=== PATIENT | female | born 1980 | race Caucasian/White ===

== ENCOUNTER 2017-12-15 08:12 | Outpatient (CLI) | payer OTHER ==
[~2017-12-15] VITALS: Ht 154.9 cm; Wt 72.3 kg
[~2017-12-15 08:12] MED LIST: ACET-1600 PO; ACET-458 PO; ACET325T26 PO; DOCO100C PO; FERR325T18 PO; FEXO180T72 PO; IBUP-1222 PO; NORE1TAB11 PO; OXYC-302 PO; PREN1TAB28 PO; PREN1TAB52 PO; VITAMIN B PO; [UNRECOGNIZED DRUG - OTHER]
[2017-12-15] MEDS ORDERED: ACET-1757 PO (09:20)
[2017-12-15] MEDS ORDERED: ACET-76 PO (09:20)
[2017-12-15 09:45] VITALS: BP 108/58
== END 2017-12-15 09:41 | disposition home or self-care (01) ==
LOC: LDOP 08:12
PROVIDERS: ATTEND Obstetrics & Gynecology Gynecology
DX: O36.8130 Decreased fetal movements, third trimester, not applicable or unspecified (principal); Z3A.36 36 weeks gestation of pregnancy
CPT/HCPCS: 59025; 99211; G0463

== ENCOUNTER 2017-12-29 19:01 | Outpatient (CLI) | payer OTHER ==
[~2017-12-29] VITALS: Ht 154.9 cm; Wt 73.2 kg
[~2017-12-29 19:01] MED LIST changes: +ACET-1757 PO; +ACET-76 PO
== END 2017-12-29 20:17 | disposition home or self-care (01) ==
LOC: LDOP 19:01
PROVIDERS: ATTEND Obstetrics & Gynecology Gynecology
DX: O26.893 Other specified pregnancy related conditions, third trimester (principal); R10.9 Unspecified abdominal pain; Z3A.00 Weeks of gestation of pregnancy not specified
CPT/HCPCS: 59025; 99211; G0463

== ENCOUNTER 2018-01-06 09:54 | Inpatient (IN) | payer OTHER ==
[~2018-01-06] VITALS: Ht 162.6 cm; Wt 73.1 kg
[2018-01-06] MEDS ORDERED: LACTATED RINGERS 1,000 ML IV SCH (10:12)
[2018-01-06] MEDS ORDERED: OXYTOCIN 30U/ 0.9% NaCL 500ML 500 ML IV SCH (10:12)
[2018-01-06 10:30] LABS: BASOPHILS # (AUTO) 0.01 x10^3/uL (0-0.1); BASOPHILS % (AUTO) 0 % (0-1); EOSINOPHILS # (AUTO) 0.04 x10^3/uL (0-0.4); EOSINOPHILS % (AUTO) 0 % (1-7); LYMPHOCYTES # (AUTO) 1.62 x10^3/uL (1-3.4); LYMPHOCYTES % (AUTO) 17 % (22-44); MD NO; MEAN CORPUSCULAR HEMOGLOBIN 31.3 pg (27.0-34.8); MEAN CORPUSCULAR HGB CONC 34.2 g/dL (32.4-35.8); MEAN CORPUSCULAR VOLUME 91.7 fL (80-100); MEAN PLATELET VOLUME 8.4 fL (7.4-10.4); MONOCYTES # (AUTO) 0.39 x10^3/uL (0.2-0.8); MONOCYTES % (AUTO) 4 % (2-9); NEUTROPHILS % (AUTO) 79 % (42-75); PLATELET COUNT 215 x10^3/uL (130-400); RED BLOOD COUNT 4.21 x10^6/uL (3.82-5.3); RED CELL DISTRIBUTION WIDTH 13.4 % (9.6-15.2)
[2018-01-06] MEDS ORDERED: LACTATED RINGERS 1,000 ML IVBOLUS ONE (10:30)
[2018-01-06] MEDS ORDERED: SODIUM CITRATE/CITRIC ACID 30 ML UDC PO ONE (10:30)
[2018-01-06] MEDS ORDERED: METOCLOPRAMIDE 5 MG/ML, 2ML IV ONE (10:30)
[2018-01-06 10:33] VITALS: BP 119/68
[2018-01-06] MEDS ORDERED: OXYTOCIN 30U/ 0.9% NaCL 500ML 500 ML ONE (10:57)
[2018-01-06] MEDS ORDERED: NEWBORN KIT ONE (10:57)
[2018-01-06] MEDS ORDERED: SODIUM CITRATE/CITRIC ACID 30 ML UDC ONE (10:57)
[2018-01-06] MEDS ORDERED: METOCLOPRAMIDE 5 MG/ML, 2ML ONE (10:57)
[2018-01-06] MEDS ORDERED: EPHEDRINE 50 MG/ML, 1ML ONE (11:19)
[2018-01-06] MEDS ORDERED: CEFAZOLIN 1,000 MG ONE (11:19)
[2018-01-06] MEDS ORDERED: KETOROLAC 30 MG/1 ML ONE ×2 (11:19→15:18)
[2018-01-06] MEDS ORDERED: OXYTOCIN 10 UNITS/ML, 1ML ONE (11:19)
[2018-01-06] MEDS ORDERED: ONDANSETRON 2MG/ML, 2ML ONE (11:19)
[2018-01-06] MEDS ORDERED: PHENYLEPHRINE 10 MG/ML ONE (11:19)
[2018-01-06] MEDS ORDERED: DEXAMETHASONE 4 MG/ML, 1ML ONE (11:19)
[2018-01-06] MEDS ORDERED: FENTANYL PF 100 MCG/2ML ONE (11:20)
[2018-01-06] MEDS ORDERED: MEPERIDINE/PF 25MG/0.5ML IVPush PRN (11:30)
[2018-01-06] MEDS ORDERED: OXYcodone 5 MG/5 ML ORAL.SOL UDC PO PRN (11:30)
[2018-01-06] MEDS ORDERED: LABETALOL 5MG/ML, 20ML IV PRN (11:30)
[2018-01-06] MEDS ORDERED: EPHEDRINE 50 MG/ML, 1ML IVPush PRN (11:30)
[2018-01-06] MEDS ORDERED: HYDROcodone/APAP 7.5-325MG/15ML UDC PO PRN (11:30)
[2018-01-06] MEDS ORDERED: ALBUTEROL SULFATE 2.5 MG/3 ML NPPB PRN (11:30)
[2018-01-06] MEDS ORDERED: ONDANSETRON 2MG/ML, 2ML IVPush PRN (11:30)
[2018-01-06] MEDS ORDERED: hydrALAzine 20 MG/ML, 1ML IV PRN (11:30)
[2018-01-06] MEDS ORDERED: PROMETHAZINE 25 MG/ML, 1ML IV PRN (11:30)
[2018-01-06] MEDS ORDERED: FENTANYL PF 100 MCG/2ML IV PRN (11:30)
[2018-01-06] MEDS ORDERED: MIDAZOLAM 1 MG/ML, 2ML IV PRN (11:30)
[2018-01-06] MEDS ORDERED: HYDROmorphone 1 MG/ML, 1ML IV PRN (11:30)
[2018-01-06] MEDS: LACTATED RINGERS 1,000 ML IV SCH ×4 (13:41→23:41)
[2018-01-06] MEDS: OXYTOCIN 30U/ 0.9% NaCL 500ML 500 ML IV SCH ×2 (13:41→23:41)
[2018-01-06] MEDS ORDERED: CALCIUM CARBONATE 500 MG TAB.CHEW PO PRN (14:00)
[2018-01-06] MEDS ORDERED: DIPH,PERTUSS(ACELL),TET VAC/PF NC IM-VACC PRN (14:00)
[2018-01-06] MEDS ORDERED: ONDANSETRON 2MG/ML, 2ML IV PRN (14:00)
[2018-01-06] MEDS ORDERED: RHOGAM FROM BLOOD BANK 1 NOTE EA IM/IV ONE (14:00)
[2018-01-06] MEDS ORDERED: SIMETHICONE 80 MG CHEW TAB PO PRN (14:00)
[2018-01-06] MEDS ORDERED: morphine SULFATE 10 MG/ML, 1ML IVPush PRN (14:00)
[2018-01-06] MEDS ORDERED: MISOPROSTOL 200 MCG TABLET PR PRN (14:00)
[2018-01-06] MEDS ORDERED: OXYcodone/APAP 5/325MG TABLET PO PRN (14:00)
[2018-01-06] MEDS ORDERED: MEASLES,MUMPS&RUBELLA VACC/PF 0.5 ML SQ-VACC PRN (14:00)
[2018-01-06] MEDS ORDERED: HYDROcodone/APAP 7.5-325MG/15ML UDC ONE (15:18)
[2018-01-06] MEDS: KETOROLAC 30 MG/1 ML IV PRN ×2 (15:19→21:23)
[2018-01-06 15:30] VITALS: BP 101/58
[2018-01-06] MEDS: DOCUSATE 100 MG CAPSULE PO PRN (19:12)
[2018-01-06] MEDS: OXYcodone IR 5MG TABLET PO PRN ×2 (19:13→23:54)
[2018-01-06 19:15] VITALS: BP 110/76
[2018-01-06 21:17] LABS: BASOPHILS # (AUTO) 0.01 x10^3/uL (0-0.1); BASOPHILS % (AUTO) 0 % (0-1); EOSINOPHILS % (AUTO) 0 % (1-7); LYMPHOCYTES # (AUTO) 0.72 x10^3/uL (1-3.4); LYMPHOCYTES % (AUTO) 5 % (22-44); MD NO; MEAN CORPUSCULAR HEMOGLOBIN 30.6 pg (27.0-34.8); MEAN CORPUSCULAR HGB CONC 33.7 g/dL (32.4-35.8); MEAN CORPUSCULAR VOLUME 90.8 fL (80-100); MEAN PLATELET VOLUME 8.5 fL (7.4-10.4); MONOCYTES # (AUTO) 0.39 x10^3/uL (0.2-0.8); MONOCYTES % (AUTO) 3 % (2-9); NEUTROPHILS # (AUTO) 12.32 x10^3/uL (1.8-6.8); NEUTROPHILS % (AUTO) 92 % (42-75); PLATELET COUNT 195 x10^3/uL (130-400); RED BLOOD COUNT 3.56 x10^6/uL (3.82-5.3); RED CELL DISTRIBUTION WIDTH 13.7 % (9.6-15.2)
[2018-01-07 00:30] VITALS: BP 102/64
[2018-01-07] MEDS: IBUPROFEN 600 MG TABLET PO PRN ×3 (03:48→16:14)
[2018-01-07 04:07] VITALS: BP 99/65
[2018-01-07] MEDS: LACTATED RINGERS 1,000 ML IV SCH ×5 (05:41→21:41)
[2018-01-07] MEDS: OXYcodone IR 5MG TABLET PO PRN ×4 (05:58→20:50)
[2018-01-07 08:00] VITALS: BP 120/73
[2018-01-07] MEDS: OXYTOCIN 30U/ 0.9% NaCL 500ML 500 ML IV SCH ×2 (09:41→19:41)
[2018-01-07] MEDS: DOCUSATE 100 MG CAPSULE PO PRN ×2 (10:33→19:24)
[2018-01-07] MEDS: PRENATAL VIT/IRON/FA 1 EACH TABLET PO SCH (10:33)
[2018-01-07 12:30] VITALS: BP 118/77
[2018-01-07 16:58] VITALS: BP 122/78
[2018-01-07 19:30] VITALS: BP 113/71
[2018-01-08] MEDS: IBUPROFEN 600 MG TABLET PO PRN ×2 (00:56→08:53)
[2018-01-08] MEDS: OXYcodone IR 5MG TABLET PO PRN ×2 (02:50→07:04)
[2018-01-08] MEDS: LACTATED RINGERS 1,000 ML IV SCH ×2 (05:41)
[2018-01-08] MEDS: OXYTOCIN 30U/ 0.9% NaCL 500ML 500 ML IV SCH (05:41)
[2018-01-08 08:09] VITALS: BP 112/75
[2018-01-08] MEDS: DOCUSATE 100 MG CAPSULE PO PRN (08:53)
[2018-01-08] MEDS: PRENATAL VIT/IRON/FA 1 EACH TABLET PO SCH (08:53)
[2018-01-08] MEDS ORDERED: OXYC-302 PO (13:04)
[2018-01-08] MEDS ORDERED: IBUP-1222 PO (13:48)
== END 2018-01-08 14:25 | disposition home or self-care (01) | DRG 766 ==
LOC: LDIP 09:54 → 2NW 15:34
PROVIDERS: ADMIT Obstetrics & Gynecology Gynecology; ATTEND Obstetrics & Gynecology Gynecology
PROC: 10D00Z1 Extraction of Products of Conception, Low, Open Approach (ICD-10-PCS; principal; 2018-01-06)
PROC: 0UB70ZZ Excision of Bilateral Fallopian Tubes, Open Approach (ICD-10-PCS; 2018-01-06)
PROC: 3E0234Z Introduction of Serum, Toxoid and Vaccine into Muscle, Percutaneous Approach (ICD-10-PCS; 2018-01-06)
DX: O34.211 Maternal care for low transverse scar from previous cesarean delivery (principal); Z23 Encounter for immunization; Z37.0 Single live birth; Z30.2 Encounter for sterilization; Z82.49 Family history of ischemic heart disease and other diseases of the circulatory system; Z3A.39 39 weeks gestation of pregnancy; Z90.89 Acquired absence of other organs; Z81.8 Family history of other mental and behavioral disorders
CPT/HCPCS: 36415; 82803; 85025; 86850; 86900; 88302; J0690; J1100; J1885; J2405; J3010; J2370; J2590; J2765; J7120